=== PATIENT | male | born 2000 ===

== ENCOUNTER 2024-08-20 16:23 | Emergency (ER) | payer OTHER, SELFPAY ==
[2024-08-20 16:24] VITALS: BP 158/99
[2024-08-20 16:53] LABS: % Basophils 0.5 % (0-2); % Eosinophils 5.7 % (0-6); % Immature Granulocytes 0.5 % (0-0.5); % Lymphocytes 25.8 % (20.5-51.1); % Monocytes 7.8 % (1.7-9.3); % Neutrophils 59.7 % (42.2-75.2); Absolute Basophils 0.1 10^3/uL (0-0.2); Absolute Eosinophils 0.5 10^3/uL (0-0.7); Absolute Immature Granulocytes 0.1 10^3/uL (0-0.05); Absolute Lymphocytes 2.4 10^3/uL (1.2-3.4); Absolute Monocytes 0.7 10^3/uL (0.1-0.6); Absolute Neutrophils 5.6 10^3/uL (1.4-6.5); Hematocrit 43.5 % (39.0-52.0); Hemoglobin 15.1 g/dL (13.0-18.0); Mean Corp Hgb Conc. 34.7 g/dL (33.0-37.0); Mean Corpuscular Volume 83.5 fL (80.0-94.0); Nucleated Red Blood Cells % 0 % (-); Platelet Count 233 10^3/uL (130-400); Red Blood Cell Count 5.21 10^6/uL (4.70-6.10); Red Cell Dist. Width 12.7 % (11.5-14.5); White Blood Cell Count 9.3 10^3/uL (4.8-10.8)
[2024-08-20 17:02] LABS: INR 0.94; PT 12.8 Sec (11.4-14.6)
[2024-08-20 17:05] LABS: ALT (SGPT) 71 U/L (0-50); AST (SGOT) 42 U/L (17-59); Albumin 4.4 g/dl (3.5-5.0); Alkaline Phosphatase 78 U/L (38-126); Blood Urea Nitrogen 14 mg/dl (9-20); Calcium 9.7 mg/dl (8.4-10.2); Carbon Dioxide 26 mmol/L (22-30); Chloride 104 mmol/L (98-107); Glucose 110 mg/dl (70-99); Potassium 4.1 mmol/L (3.5-5.1); Sodium 137 mmol/L (135-145); Total Bilirubin 0.6 mg/dl (0.2-1.3); Total Protein 7.5 g/dl (6.3-8.2); eGFR > 60.00
[2024-08-20 17:23] LABS: Troponin I < 0.012 ng/ml
--- NOTE | 2024-08-20 18:19 | ED.GENMED ---
History of Present Illness
General
Chief Complaint: Breathing Problem
Source: patient
Exam Limitations: none
Time Seen by Provider: 08/20/24 18:00
History of Present Illness
History of Present Illness:
23yoM with a history of tobacco use and obesity presenting with his significant other for evaluation of shortness of breath. Patient has been having intermittent dyspnea over the past few months. His current symptoms began last night. He reports
feeling short of breath like he cannot fully inhale. He also reports wheezing, chest tightness, and cough. Symptoms last about 20-25 minutes at a time and seem to be triggered by activity. He was seen at [place] [facility] a few months ago and was told
everything looks normal. 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 He smokes marijuana daily and also vapes nicotine.
Phy Exam
General Physical Exam
General Presentation: well appearing and no apparent distress
General age: appears stated age
General Skin: warm and dry
General Habitus: normal
General Mental: alert
ENT Exam
ENT Exam: normocephalic
Cardiovascular Exam
Cardiovascular Exam: regular rate/rhythm, no edema and no murmur
Pulmonary Exam
Pulmonary Exam: lungs clear, no respiratory distress, no rales, no crackles, no rhonchi and no wheezing
Neurological Exam
Neurological Exam: alert
[place] Coma Scale
Eye Opening: Spontaneous
Verbal Response: Oriented
Motor Response: Obeys Commands
GCS Total Score: 15
Skin Exam
Skin Exam: normal color and warm/dry
Psychiatric Exam
Psychiatric Exam: normal mood/affect
Course
Orders/Labs/Results
Orders:
Orders
08/20/24 16:28
CR Chest - 2 Views Urgent
Comment:
Reason For Exam: SOB
08/20/24 16:42
Complete Blood Count/With Diff Urgent
Comprehensive Metabolic Panel Urgent
Prothrombin Time Urgent
Troponin I Urgent
08/20/24 18:30
D-Dimer Urgent
Abnormal Lab Results
08/20/24
16:42
Abs Immat Gran (auto) 0.1 H 10^3/uL
(0-0.05)
Absolute Monos (auto) 0.7 H 10^3/uL
(0.1-0.6)
Glucose 110 H mg/dl
(70-99)
ALT 71 H U/L
(0-50)
08/20/24 16:42
08/20/24 16:42
Vital Signs
Initial and Last Documented VS:
Initial Vital Signs
Temp Pulse Resp BP Pulse Ox
99.1 F 97 17 158/99 97
08/20/24 16:24 08/20/24 16:24 08/20/24 16:24 08/20/24 16:24 08/20/24 16:24
Last Documented Vital Signs
Temp Pulse Resp BP Pulse Ox
99.1 F 97 17 112/72 97
08/20/24 16:24 08/20/24 16:24 08/20/24 16:24 08/20/24 18:25 08/20/24 18:37
MDM/Problems Addressed
Differential Diagnosis Includes:
23yoF here with SOB. Intermittent symptoms x months, symptoms recurred since last night. Associated with wheezing, tightness, and cough. No symptoms during exam. Mostly with activity. He is mildly hypertensive with otherwise normal vitals. Oxygen
saturation 97% on room air. He is well appearing in no distress. Lungs CTA and respirations non-labored. Differential diagnosis includes but is not limited to: asthma, bronchospasm, pneumonia, pneumothorax, PE, less likely ACS given age
Initial ED plan: Cardiac labs and CXR obtained in triage. Labs overall unremarkable. EKG shows normal sinus rhythm without ischemic changes and troponin within normal limits. Chest x-ray is clear without infiltrates. Will check D-dimer.
*EKG
Interpreted by ED Provider?: Yes
EKG Intrepretation Date: 08/20/24
Heart Rate: 83
Rate: normal
Rhythm: sinus
[place]: normal axis
Interval: normal interval
QRS Pattern: right bundle branch block (incomplete)
Ischemia: no ischemia
*Critical Care Note
Total Time (30-74mins, 75-104mins- exclusive of procedures): Not Applicable
Update Note
Update Note:
D-dimer normal making PE very unlikely. Patient remains asymptomatic on reassessment. No indication for hospitalization at this time. Question whether symptoms are related to bronchospasm as his dyspnea is associated with wheezing and cough. No
prior diagnosis of asthma although patient does smoke marijuana and vape regularly. Will prescribe albuterol inhaler that he can use as needed. Also discussed importance of smoking cessation. He was advised to follow-up with his PCP and ED return
precautions discussed. Patient in agreement with plan and was discharged in stable condition.
ED Attending Note
-
Portions of this chart may have been created with voice recognition software.� Occasional wrong word or��sound alike� substitutions may have occurred due to the inherent limitations of voice recognition software.
Discharge Plan
Departure
Patient Disposition: Home (Routine Discharge)
Date of Disposition: 08/20/24
Time of Disposition: 19:32
Patient with high blood pressure during this ER visit?: No
Discharge Problem:
Shortness of breath
Instructions: Shortness of Breath (Dyspnea) (DC)
Prescriptions:
New
albuterol sulfate [Ventolin HFA] 90 mcg/actuation HFA aerosol inhaler
1 inh inhalation Q6H PRN (Reason: shortness of breath or wheezing) Qty: 1 0RF
Referrals:
UNKNOWN - PT DOES,NOT KNOW [Family Provider] -
Activity Restrictions/Additional Instructions:
Use inhaler as needed for wheezing/chest tightness. Try your best to stop smoking.
Please follow-up with a family doctor. Return to the ER with any new or worsening symptoms.
Interventions
Interventions:
*Risk Screen - Suicide Last Done: 08/20/24 16:27
*General Assessment Last Done: 08/20/24 16:27
*Neglect/Abuse Screening Last Done: 08/20/24 16:27
ED- Fall Risk Assessment Last Done: 08/20/24 18:37
*ED COVID-19 Vaccine History Last Done: 08/20/24 16:27
*Nursing Disposition Last Done: 08/20/24 19:41
ED- Cardiac Assessment Last Done: 08/20/24 18:37
ED- Pulmonary Assessment Last Done: 08/20/24 18:37
Discharge Date and Time
Discharge Date/Time: 08/20/24 19:43
Print Language: [id number]
[2024-08-20 18:23] VITALS: BMI 37.3
[2024-08-20 18:25] VITALS: BP 112/72
[2024-08-20 18:56] LABS: D-Dimer 0.29 ug/mlFEU (0.00-0.50)
== END 2024-08-20 19:43 | disposition home or self-care (01) ==
LOC: EMR 16:23
PROVIDERS: Emergency Medicine; Physician Assistant; EMERGENCY PHYSICIAN Emergency Medicine
DX: R06.02 Shortness of breath (principal)
CPT/HCPCS: 99283; 71046; 80053; 84484; 85025; 85379; 85610; 93005